=== PATIENT | female | born 1975 | race Asian ===

== ENCOUNTER 2023-01-23 08:33 | Day surgery (SDC) | payer OTHER ==
[~2023-01-23] VITALS: Ht 157.5 cm; Wt 51.3 kg
[2023-01-23] MEDS ORDERED: fentaNYL citrate 0.05 MG/ML VIAL ONE (10:43)
[2023-01-23] MEDS ORDERED: LIDOCAINE 2% 100 MG/5 ML UJET TP ONE (10:43)
[2023-01-23] MEDS ORDERED: fentaNYL citrate 0.05 MG/ML VIAL IVP ONE (15:35)
== END 2023-01-23 12:17 | disposition home or self-care (01) ==
LOC: MOR 08:33 → MMU 08:36 → MOR 12:17
PROVIDERS: ATTEND Internal Medicine Gastroenterology
DX: Z12.11 Encounter for screening for malignant neoplasm of colon (principal); K57.30 Diverticulosis of large intestine without perforation or abscess without bleeding; E78.5 Hyperlipidemia, unspecified; E11.9 Type 2 diabetes mellitus without complications; K21.9 Gastro-esophageal reflux disease without esophagitis; Z79.899 Other long term (current) drug therapy
CPT/HCPCS: 45378; 82948; J3010